=== PATIENT | male | born 1945 | race Caucasian/White ===

== ENCOUNTER 2018-12-28 14:14 | Inpatient (IN) | payer MEDICARE ==
[2018-12-28] MEDS ORDERED: DIPH,PERTUS(ACELL)TETVAC-LF 0.5 ML VIAL IM ONE (15:13)
--- NOTE | 2018-12-28 15:25 | ED ---
General Adult HPI - General Chief complaint: Trauma Stated complaint: SHOT IN STOMACH WITH PIN NAIL GUN Time Seen by Provider: 12/28/18 14:55 Source: patient, family, RN notes reviewed Mode of arrival: ambulatory Limitations: no limitations - History of Present Illness Initial comments: Patient is a pleasant 73-year-old male sitting to the emergency department with accidental nail gun to the abdomen. Incident occurred 48 hours ago approximately. Patient states he was cleaning up and heard the nail gun go off. Patient was not clear whether or not this struck him. Patient did start developing some discomfort of his abdomen a couple of hours after this. Discomfort remains mild. Discomfort does increase with movement. Patient usually runs in the morning however was unable to run yesterday or this morning because of discomfort. Patient does not feel he needs any pain medication for his discomfort. Unclear last tetanus immunization. No other areas of injury. Area of involvement was just superior and left of the umbilicus. - Related Data Home Medications Medication Instructions Recorded Confirmed Calcium Carbonate [Calcium] 600 mg PO DAILY 12/28/18 12/28/18 Magnesium(Unknown) 1 tab PO DAILY 12/28/18 12/28/18 Potassium 99 mg PO DAILY 12/28/18 12/28/18 Allergies Allergy/AdvReac Type Severity Reaction Status Date / Time No Known Allergies Allergy Verified 12/28/18 14:59 Review of Systems ROS Statement: Those systems with pertinent positive or pertinent negative responses have been documented in the HPI. ROS Other: All systems not noted in ROS Statement are negative. Constitutional: Denies: fever Eyes: Denies: eye pain ENT: Denies: ear pain Respiratory: Denies: cough Cardiovascular: Denies: chest pain Endocrine: Denies: fatigue Gastrointestinal: Reports: as per HPI, abdominal pain Genitourinary: Denies: dysuria Musculoskeletal: Denies: back pain Skin: Denies: rash Neurological: Denies: weakness Past Medical History Past Medical History: No Reported History History of Any Multi-Drug Resistant Organisms: None Reported Additional Past Surgical History / Comment(s): eye, bovine knee graft Past Psychological History: No Psychological Hx Reported Smoking Status: Never smoker Past Alcohol Use History: Occasional Past Drug Use History: None Reported General Exam Limitations: no limitations General appearance: alert, in no apparent distress Head exam: Present: atraumatic Eye exam: Present: normal appearance, PERRL ENT exam: Present: normal oropharynx Neck exam: Present: normal inspection Respiratory exam: Present: normal lung sounds bilaterally Cardiovascular Exam: Present: regular rate, normal rhythm GI/Abdominal exam: Present: soft, tenderness (Mild tenderness and puncture just superior and left lateral of the umbilicus. There is minimal fullness subcutaneous.), normal bowel sounds. Absent: distended, guarding, rebound, rigid, pulsatile mass Extremities exam: Present: normal inspection. Absent: pedal edema, calf tenderness Neurological exam: Present: alert Psychiatric exam: Present: normal affect, normal mood Skin exam: Present: normal color, other (Abdominal puncture) Course Vital Signs 12/28/18 14:21 Temperature 98.3 F Pulse Rate 62 Respiratory 18 Rate Blood Pressure 156/71 O2 Sat by Pulse 98 Oximetry - Reevaluation(s) Reevaluation #1: 12/28/18 16:53 Case was discussed with Dr. King who is coming to evaluate patient. EKG Findings - EKG Comments: EKG Findings:: Sinus bradycardia 50. AR 176. QRS 114. QT 460. QTC 419. Left axis. LVH criteria. No acute ST change. Medical Decision Making - Medical Decision Making Patient reevaluated and updated. - Lab Data Result diagrams: 12/28/18 15:15 12/28/18 15:15 Lab Results 12/28/18 12/28/18 12/28/18 Range/Units 15:15 15:15 15:15 WBC 7.0 (3.8-10.6) k/uL RBC 5.12 (4.30-5.90) m/uL Hgb 16.1 (13.0-17.5) gm/dL Hct 47.1 (39.0-53.0) % MCV 92.0 (80.0-100.0) fL MCH 31.4 (25.0-35.0) pg MCHC 34.1 (31.0-37.0) g/dL RDW 14.7 (11.5-15.5) % Plt Count 251 (150-450) k/uL Neutrophils % 58 % Lymphocytes % 33 % Monocytes % 5 % Eosinophils % 2 % Basophils % 1 % Neutrophils # 4.0 (1.3-7.7) k/uL Lymphocytes # 2.3 (1.0-4.8) k/uL Monocytes # 0.3 (0-1.0) k/uL Eosinophils # 0.2 (0-0.7) k/uL Basophils # 0.0 (0-0.2) k/uL PT 9.6 (9.0-12.0) sec INR 0.9 (<1.2) APTT 23.6 (22.0-30.0) sec Sodium 140 (137-145) mmol/L Potassium 4.0 (3.5-5.1) mmol/L Chloride 104 (98-107) mmol/L Carbon Dioxide 26 (22-30) mmol/L Anion Gap 10 mmol/L BUN 15 (9-20) mg/dL Creatinine 0.74 (0.66-1.25) mg/dL Est GFR (CKD-EPI)AfAm >90 (>60 ml/min/1.73 sqM) Est GFR (CKD-EPI)NonAf >90 (>60 ml/min/1.73 sqM) Glucose 110 H (74-99) mg/dL Calcium 9.8 (8.4-10.2) mg/dL Total Bilirubin 0.5 (0.2-1.3) mg/dL AST 49 (17-59) U/L ALT 44 (21-72) U/L Alkaline Phosphatase 60 (38-126) U/L Total Protein 7.8 (6.3-8.2) g/dL Albumin 4.5 (3.5-5.0) g/dL Serum Alcohol <10 mg/dL - Radiology Data Radiology results: image reviewed (ET scan abdomen pelvis does show metallic foreign body transversing rectus abdominis muscle close approximation to the colon. Small amount of inflammatory change. No abscess or free air.) Critical Care Time Critical Care Time: Yes Total Critical Care Time: 31 Disposition Clinical Impression: Penetrating abdominal trauma Disposition: ADMITTED IP TO THIS HOSP Is patient prescribed a controlled substance at d/c from ED?: No Referrals: Deangelo Ruiz MD [Primary Care Provider] - 1-2 days Decision Time: 16:54
[2018-12-28 15:33] LABS: Basophils % (A) 1 %; Eosinophils # (A) 0.2 k/uL (0-0.7); Eosinophils % (A) 2 %; HCT 47.1 % (39.0-53.0); HGB 16.1 gm/dL (13.0-17.5); Lymphocytes # (A) 2.3 k/uL (1.0-4.8); Lymphocytes % (A) 33 %; MCH 31.4 pg (25.0-35.0); MCHC 34.1 g/dL (31.0-37.0); Mean Platelet Volume 7.1; Monocytes # (A) 0.3 k/uL (0-1.0); Monocytes % (A) 5 %; Neutrophils % (A) 58 %; Platelet Count 251 k/uL (150-450); RBC 5.12 m/uL (4.30-5.90); RDW 14.7 % (11.5-15.5)
[2018-12-28 15:39] LABS: ALT 44 U/L (21-72); AST 49 U/L (17-59); African American GFR (CKD) >90 (>60 ml/min/1.73 sqM); Albumin 4.5 g/dL (3.5-5.0); Alcohol <10 mg/dL; Alkaline Phosphatase 60 U/L (38-126); Anion Gap 10 mmol/L; Blood Urea Nitrogen 15 mg/dL (9-20); Calcium 9.8 mg/dL (8.4-10.2); Carbon Dioxide 26 mmol/L (22-30); Chloride 104 mmol/L (98-107); Glucose 110 mg/dL (74-99); Sodium 140 mmol/L (137-145); Total Bilirubin 0.5 mg/dL (0.2-1.3); Total Protein 7.8 g/dL (6.3-8.2)
[2018-12-28 15:41] LABS: INR 0.9 (<1.2); Partial Thromboplastin Time 23.6 sec (22.0-30.0); Prothrombin Time 9.6 sec (9.0-12.0)
--- NOTE | 2018-12-28 16:32 | CT ---
EXAMINATION TYPE: CT abdomen pelvis w con DATE OF EXAM: 12/28/2018 COMPARISON: None INDICATION: Trauma from "pin gun" left side of navel on 12/26/18. Redness and tenderness DLP: 1044.2 mGycm, Automated exposure control for dose reduction was used. CONTRAST: 100 mL of Isovue 300. Study performed without Oral Contrast TECHNIQUE: Axial images were obtained from above the diaphragm to the pubic rami in the axial plane a t 5 mm thick sections. Reconstructed images are reviewed on the computer in the coronal plane. FINDINGS: Limited CT sections are obtained the lung bases. The lung bases are clear. CT ABDOMEN: Liver: There are likely scattered hepatic cysts present. Spleen: Normal Pancreas: Normal Adrenal glands: The adrenal glands are normal. Gallbladder: Normal Kidneys: No masses are evident. No hydronephrosis is present. Multiple renal cysts are present. De layed images were obtained through the kidneys, which remain unremarkable. Aorta: Vascular calcification is within the aorta. Inferior vena cava: Prominent CT PELVIS: Loops of bowel within the abdomen and pelvis are normal. There are loops of bowel which are incom pletely distended or lack oral contrast limiting their evaluation. Appendix: Normal as visualized. Urinary bladder: Normal. Genitourinary structures: Prostate is very prominent. Osseous structures: No suspicious lytic or sclerotic lesions. Small amount of air is posterior to the L5 vertebral level. No free air is evident within the abdomen. There is a metallic foreign body transversing the rectus a bdominis muscle in close approximation with the colon with a proximal tip within the subcutaneous tis sues. The distal tip is adjacent to the air within the colon. This cannot be confirmed with the tip w ithin the colon. Is unclear if there is a puncture of the colon at this time. No abscess formation is evident. Tiny amount of inflammatory change may be adjacent to the metallic foreign body within the mesentery. IMPRESSIONS: 1. Metallic foreign body transversing the rectus abdominis muscle in close approximation with the ad jacent colon may has a small amount of inflammatory change adjacent. Abscess formation, free air, or obvious puncture of the colon is not evident. Report was called to Dr. Tavarez by Dr. Vigil by teleph one at the time of interpretation.
[2018-12-28] MEDS ORDERED: HYDROmorphone 0.5 MG/0.5 ML SYRINGE IVP PRN (16:55)
[2018-12-28] MEDS ORDERED: HYDROmorphone 1 MG/ML 1 ML SYRINGE IVP PRN (16:55)
[2018-12-28] MEDS ORDERED: NALOXONE 0.4 MG/ML 1 ML VIAL IV PRN ×2 (16:55→18:35)
[2018-12-28] MEDS: SODIUM CHLORIDE 0.9% 1,000 ML IV SCH (17:20)
--- NOTE | 2018-12-28 17:20 | P.GSHP ---
History of Present Illness H&P Date: 12/28/18 Chief Complaint: Nail gun to abdomen This is a 73-year-old male who had a misfire of his nail gun 2 days ago Patient had a 1-1/2 inch Howie type nail accidentally fired from his kneeling gun. Patient had a small puncture next to his umbilicus. Patient developed increased pain and presents emergently. The CAT scan shows evidence of the nail was in the peritoneal cavity. The nail is partially through the abdominal wall with approximately three quarters the nail in the peritoneal cavity. Patient states he has pain when walking and moving however in that he has no pain. Past Medical History Past Medical History: No Reported History History of Any Multi-Drug Resistant Organisms: None Reported Additional Past Surgical History / Comment(s): eye, bovine knee graft Past Psychological History: No Psychological Hx Reported Smoking Status: Never smoker Past Alcohol Use History: Occasional Past Drug Use History: None Reported Medications and Allergies Home Medications Medication Instructions Recorded Confirmed Type Calcium Carbonate [Calcium] 600 mg PO DAILY 12/28/18 12/28/18 History Magnesium(Unknown) 1 tab PO DAILY 12/28/18 12/28/18 History Potassium 99 mg PO DAILY 12/28/18 12/28/18 History Allergies Allergy/AdvReac Type Severity Reaction Status Date / Time No Known Allergies Allergy Verified 12/28/18 14:59 Surgical - Exam Vital Signs Temp Pulse Resp BP Pulse Ox 98.3 F 62 18 156/71 98 12/28/18 14:21 12/28/18 14:21 12/28/18 14:21 12/28/18 14:21 12/28/18 14:21 - General well developed, well nourished, no distress - Eyes PERRL - ENT normal pinna - Neck no masses - Respiratory normal expansion - Abdomen Minimal tenderness. There is no rebound or guarding. There is a small puncture wound to the right of the umbilicus. Abdomen: soft Results - Labs 12/28/18 15:15 12/28/18 15:15 Abnormal Lab Results - Last 24 Hours (Table) 12/28/18 Range/Units 15:15 Glucose 110 H (74-99) mg/dL Diabetes panel 12/28/18 Range/Units 15:15 Sodium 140 (137-145) mmol/L Potassium 4.0 (3.5-5.1) mmol/L Chloride 104 (98-107) mmol/L Carbon Dioxide 26 (22-30) mmol/L BUN 15 (9-20) mg/dL Creatinine 0.74 (0.66-1.25) mg/dL Glucose 110 H (74-99) mg/dL Calcium 9.8 (8.4-10.2) mg/dL AST 49 (17-59) U/L ALT 44 (21-72) U/L Alkaline Phosphatase 60 (38-126) U/L Total Protein 7.8 (6.3-8.2) g/dL Albumin 4.5 (3.5-5.0) g/dL Calcium panel 12/28/18 Range/Units 15:15 Calcium 9.8 (8.4-10.2) mg/dL Albumin 4.5 (3.5-5.0) g/dL Pituitary panel 12/28/18 Range/Units 15:15 Sodium 140 (137-145) mmol/L Potassium 4.0 (3.5-5.1) mmol/L Chloride 104 (98-107) mmol/L Carbon Dioxide 26 (22-30) mmol/L BUN 15 (9-20) mg/dL Creatinine 0.74 (0.66-1.25) mg/dL Glucose 110 H (74-99) mg/dL Calcium 9.8 (8.4-10.2) mg/dL Adrenal panel 12/28/18 Range/Units 15:15 Sodium 140 (137-145) mmol/L Potassium 4.0 (3.5-5.1) mmol/L Chloride 104 (98-107) mmol/L Carbon Dioxide 26 (22-30) mmol/L BUN 15 (9-20) mg/dL Creatinine 0.74 (0.66-1.25) mg/dL Glucose 110 H (74-99) mg/dL Calcium 9.8 (8.4-10.2) mg/dL Total Bilirubin 0.5 (0.2-1.3) mg/dL AST 49 (17-59) U/L ALT 44 (21-72) U/L Alkaline Phosphatase 60 (38-126) U/L Total Protein 7.8 (6.3-8.2) g/dL Albumin 4.5 (3.5-5.0) g/dL Assessment and Plan Assessment: Penetrating trauma with thousand. No diagnostic laparoscopy with possible laparotomy.
[2018-12-28] MEDS ORDERED: SODIUM CHLORIDE 0.9% 400 ML IV ONE (17:40)
[2018-12-28] MEDS ORDERED: NEOSTIGMINE 1 MG/ML 10 ML VIAL ONE (18:00)
[2018-12-28] MEDS ORDERED: PROPOFOL 10 MG/ML 20 ML VIAL IV ONE (18:00)
[2018-12-28] MEDS ORDERED: MIDAZOLAM 2 MG/2 ML VIAL ONE (18:00)
[2018-12-28] MEDS ORDERED: LIDOCAINE 1% INJ 10MG/ML (20 ML MDV) ONE (18:00)
[2018-12-28] MEDS ORDERED: SUCCINYLCHOLINE CHLORIDE 100 MG/5 ML SYR IV ONE (18:00)
[2018-12-28] MEDS ORDERED: ceFAZolin 1,000 MG VIAL ONE (18:00)
[2018-12-28] MEDS ORDERED: ROCURONIUM BROMIDE 10 MG/ML 10 ML VIAL IV ONE (18:00)
[2018-12-28] MEDS ORDERED: GLYCOPYRROLATE 0.2 MG/ML 2 ML VIAL ONE (18:00)
[2018-12-28] MEDS ORDERED: fentaNYL (PF) 50 MCG/ML 2 ML AMP ONE (18:00)
[2018-12-28] MEDS ORDERED: LACTATED RINGERS 1,000 ML IV ONE ×3 (18:01→19:45)
[2018-12-28] MEDS ORDERED: SODIUM CHLORIDE 0.9% 100 ML with ceFAZolin 2,000 MG IV ONE ×2 (18:15)
[2018-12-28] MEDS ORDERED: BUPIVACAINE (PF) 0.5% 30 ML VIAL SQ ONE (18:26)
[2018-12-28] MEDS ORDERED: LIDOCAINE 1%-EPI 1:100,000 20 ML VIAL SQ ONE (18:26)
[2018-12-28] MEDS ORDERED: ACETAMINOPHEN TAB 325 MG TAB PO PRN (18:35)
[2018-12-28] MEDS ORDERED: ONDANSETRON 4 MG/2 ML VIAL IVP PRN (18:35)
[2018-12-28] MEDS ORDERED: HYDROcodone/APAP 5-325MG 1 EACH TAB PO PRN (18:35)
--- NOTE | 2018-12-28 18:40 | P.OP ---
Date of Procedure: 12/28/18 Preoperative Diagnosis: Penetrating mild intra-abdominal abdominal wall Postoperative Diagnosis: Intraperitoneal nail Procedure(s) Performed: Diagnostic laparoscopy with removal of foreign body Anesthesia: VANCE Surgeon: Jesus King Estimated Blood Loss (ml): 5 Pathology: other (nail) Condition: stable Disposition: PACU Description of Procedure: The patient's placed on the operative table in the supine position. He received general anesthesia. His abdomen was prepped and draped usual sterile fashion. Using a 5 mm operative trocar under direct visualization the perineal cavity is entered in the left upper quadrant. The laparoscope was placed. Cavity. The area of the nail penetration was visualized. The nail had entered through the abdominal wall. It was stuck a piece of omentum. At this point a 5 mm trochars placed the left lateral position. The nail was grasped and brought through the trocar site. There is no evidence of any injury to the bowel. It appeared that the omentum had been penetrated by the nail. There is no significant inflammatory changes. At this point the trochars withdrawn. The skin was closed interrupted 3-0 Monocryl suture. Dermabond was applied. Patient top she will was sent to recovery room stable condition.
[2018-12-28] MEDS ORDERED: KETOROLAC 30 MG/ML 1 ML VIAL IVP SCH (18:45)
[2018-12-29] MEDS: SODIUM CHLORIDE 0.9% 1,000 ML IV SCH ×2 (05:02→10:50)
[2018-12-29 07:10] VITALS: BP 133/69; PULSE 66; RESP 15; TEMP 98.9
[2018-12-29 08:14] LABS: Basophils % (A) 0 %; Eosinophils # (A) 0.1 k/uL (0-0.7); Eosinophils % (A) 2 %; HGB 15.4 gm/dL (13.0-17.5); Lymphocytes # (A) 1.5 k/uL (1.0-4.8); Lymphocytes % (A) 24 %; MCH 30.6 pg (25.0-35.0); MCHC 32.8 g/dL (31.0-37.0); MCV 93.5 fL (80.0-100.0); Mean Platelet Volume 6.4; Monocytes # (A) 0.4 k/uL (0-1.0); Monocytes % (A) 6 %; Neutrophils # (A) 4.3 k/uL (1.3-7.7); Neutrophils % (A) 67 %; Platelet Count 243 k/uL (150-450); RBC 5.03 m/uL (4.30-5.90); RDW 13.2 % (11.5-15.5); WBC 6.5 k/uL (3.8-10.6)
[2018-12-29] MEDS ORDERED: ENOXAPARIN 40 MG/0.4 ML SYRINGE SQ SCH (09:00)
[2018-12-29] MEDS ORDERED: PANTOPRAZOLE 40 MG/10 ML VIAL IV SCH (09:00)
--- NOTE | 2018-12-29 12:12 | P.DS ---
Providers Date of admission: 12/28/18 16:55 Expected date of discharge: 12/29/18 Attending physician: Jesus King Consults: 12/28/18 18:35 Consult Physician Routine Consulting Provider: Deangelo Ruiz Consult Reason/Comments: medical management Do you want consulting provider notified?: Yes Primary care physician: Deangelo Ruiz Hospital Course: This a 73-year-old male who had a penetrating trauma related to a nail gun. Patient with diagnostic laparoscopy. Please see hospital chart for details. Procedures: Diagnostic laparoscopy Patient Condition at Discharge: Good Plan - Discharge Summary Discharge Rx Participant: Yes New Discharge Prescriptions: New Docusate [Colace] 100 mg PO BID #20 capsule HYDROcodone/APAP 5-325MG [[place] 5-325] 1 tab PO Q6HR PRN #10 tab PRN Reason: Pain No Action Potassium 99 mg PO DAILY Magnesium(Unknown) 1 tab PO DAILY Calcium Carbonate [Calcium] 600 mg PO DAILY Discharge Medication List Calcium Carbonate [Calcium] 600 mg PO DAILY 12/28/18 [History] Magnesium(Unknown) 1 tab PO DAILY 12/28/18 [History] Potassium 99 mg PO DAILY 12/28/18 [History] Docusate [Colace] 100 mg PO BID #20 capsule 12/29/18 [Rx] HYDROcodone/APAP 5-325MG [[place] 5-325] 1 tab PO Q6HR PRN #10 tab 12/29/18 [Rx] Follow up Appointment(s)/Referral(s): Deangelo Ruiz MD [Primary Care Provider] - 12/30/18 2:50 pm Jesus King MD [STAFF PHYSICIAN] - 01/07/19 3:10 pm (Bring Insurance card Drivers liscense and come a little early to fill out paperwork) Patient Instructions/Handouts: *Surgery [facility] - Laparoscopy Discharge Instructions
--- NOTE | 2018-12-29 12:13 | P.PN ---
Progress Note - Text Progress Note Date: 12/29/18 The patient feels well. He has no abdominal pain. On exam his vital signs are stable. His abdomen soft. It. Patient was discharged home today.
--- NOTE | 2018-12-29 18:06 | PN ---
PROGRESS NOTE DATE OF SERVICE: 12/29/2018. CHIEF COMPLAINT: Penetrating foreign body in the abdomen. HISTORY OF PRESENT ILLNESS: This gentleman is doing well. He has had no fever, chills, abdominal pain, etc. PHYSICAL EXAMINATION: Color is good. Vital signs normal. He is afebrile. Abdomen is soft and bowel sounds are heard. There is no drainage or bleeding from any of the abdominal sites including the original entry wound and/or laparoscopy incisions. IMPRESSION: Status post penetrating wound to the abdomen. PLAN: Probably home today. MMODL / IJN: [id number] /
--- NOTE | 2018-12-29 19:30 | CONS ---
CONSULTATION CHIEF COMPLAINT: Penetrating wound to the abdomen. 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 He was doing some work around the house and was using some type of a gun that delivers pins. He was changing the head when it went off. He did not feel any pain and did not think anything was wrong. A while later, he started to have some vague abdominal pain and eventually came to the emergency room where he was identified as having metallic foreign body imbedded in the abdomen. He was taken to the operating room whereby the metallic pin, foreign body was removed under laparoscopy. It was felt that they had penetrated through the rectus muscle and was in the omentum and had not apparently caused any intraabdominal injury otherwise. He is admitted for observation. REVIEW OF SYSTEMS: He has had no headaches, neurologic problems, difficulty with vision or hearing, chest pain, shortness of breath, cough, hemoptysis, hypertension, heart disease, murmurs, rheumatic fever, orthopnea, PND, abdominal pain, other than after admission, nausea, vomiting, hematemesis, melena, hematochezia, jaundice, fever, chills, dysuria, hematuria, renal failure, diabetes, etc. Past medical history, family history, personal and social histories reveal that he is not on any medication and not allergic to any. He has had a procedure on his eyes as well as one of the knees. Does not smoke or drink. PHYSICAL EXAM: Blood pressure 141/68 with a pulse of 74 and respirations were 10. In general, he appeared to be well developed, well nourished, no acute distress. Skin is warm, dry. Lymph nodes not enlarged. Head, ears, eyes, nose, mouth, and throat were normal. Neck veins not distended. Thyroid was not enlarged. Chest is clear to auscultation and percussion. Cardiac exam is normal and the abdomen is slightly protuberant and soft. You could barely see the entry point of the foreign body and there were 2 small incisions secondary to his laparoscopy, bowel sounds are present. Extremities: Normal. Neurologic he was intact. IMPRESSION: Status post penetrating wound to the abdomen. RECOMMENDATIONS: None. He is in excellent healthy condition otherwise. MMODL / IJN: [id number] /
== END 2018-12-29 13:25 | disposition home or self-care (01) | DRG 909 ==
LOC: EC 14:14 → 4SSUR 16:55
PROVIDERS: ADMIT Surgery; ATTEND Surgery
PROC: 3E0234Z Introduction of Serum, Toxoid and Vaccine into Muscle, Percutaneous Approach (ICD-10-PCS; 2018-12-28)
PROC: 0WCG4ZZ Extirpation of Matter from Peritoneal Cavity, Percutaneous Endoscopic Approach (ICD-10-PCS; principal; 2018-12-28 18:06)
DX: S36.898A Other injury of other intra-abdominal organs, initial encounter (principal); S31.641A Puncture wound with foreign body of abdominal wall, left upper quadrant with penetration into peritoneal cavity, initial encounter; Z23 Encounter for immunization; Z79.899 Other long term (current) drug therapy; Z98.890 Other specified postprocedural states; W45.0XXA Nail entering through skin, initial encounter; W29.4XXA Contact with nail gun, initial encounter
CPT/HCPCS: 36415; 74177; 80053; 80320; 85025; 85610; 85730; 86850; 86900; 86901; 88300; 90471; 90715; 93005; 96365; 99291

== ENCOUNTER → 2019-05-14 | Outpatient (CLI) | payer MEDICARE ==
--- NOTE | 2019-05-14 15:09 | NM ---
EXAMINATION TYPE: NM bone scan whole body DATE OF EXAM: 05/14/2019 COMPARISON: NONE HISTORY: All over joint pain for 8 weeks per patient. History of right hand fracture 15 years ago and left knee surgery 30 years ago per patient. Delayed whole-body scanning was performed following the injection of 21.1 mCi Tc 99m MDP. Images acq uired 3 hours post injection. Whole body imaging in anterior and posterior projection acquired. Patie nt refused additional spot imaging. FINDINGS: No suspicious scintigraphic uptake to suggest metastatic disease to the bone or other significant abn ormality. Increased uptake bilateral knees most prominent left knee medial tibiofemoral compartment l ikely reflects product of moderate to advanced degenerative change. Correlate clinically. IMPRESSION: As above.
== END | disposition home or self-care (01) ==
LOC: RADNMMAIN 11:01
PROVIDERS: ATTEND Family Medicine
DX: M25.50 Pain in unspecified joint (principal)
CPT/HCPCS: 78306; A9503

== ENCOUNTER → 2019-05-17 | Outpatient (CLI) | payer MEDICARE ==
--- NOTE | 2019-05-17 17:39 | XR ---
EXAMINATION TYPE: XR orbit complete bilateral DATE OF EXAM: 05/17/2019 COMPARISON: NONE HISTORY: MRI screening TECHNIQUE: 4 views FINDINGS: Orbital margins are intact. There is no sign of radiopaque foreign body. IMPRESSION: Negative exam. No foreign body.
== END | disposition home or self-care (01) ==
LOC: RAD 16:45
PROVIDERS: ATTEND Psychiatry & Neurology Neurology
DX: Z13.89 Encounter for screening for other disorder (principal)
CPT/HCPCS: 70200